=== PATIENT | male | born 1935 | race Caucasian/White ===

== ENCOUNTER → 2020-05-15 10:01 | Outpatient (BNVA) | payer OTHER, SELFPAY | PROVIDERS: Family Provider Family Medicine; PCP Family Medicine; Visit Provider Specialist | DX: I63.9 Cerebral infarction, unspecified (principal); G31.83 Neurocognitive disorder with Lewy bodies; F02.81 Dementia in other diseases classified elsewhere, unspecified severity, with behavioral disturbance | CPT/HCPCS: 99214 ==

== ENCOUNTER → 2020-11-05 09:42 | Outpatient (BNVA) | payer OTHER, SELFPAY | PROVIDERS: Family Provider Family Medicine; PCP Family Medicine; Visit Provider Specialist | DX: G31.83 Neurocognitive disorder with Lewy bodies (principal); F02.81 Dementia in other diseases classified elsewhere, unspecified severity, with behavioral disturbance | CPT/HCPCS: 99214 ==

== ENCOUNTER → 2021-03-26 10:01 | Outpatient (BNVA) | payer OTHER, SELFPAY | PROVIDERS: Family Provider Family Medicine; PCP Family Medicine; Visit Provider Specialist | DX: G31.83 Neurocognitive disorder with Lewy bodies (principal); F02.81 Dementia in other diseases classified elsewhere, unspecified severity, with behavioral disturbance | CPT/HCPCS: 99214 ==

== ENCOUNTER → 2021-10-06 10:31 | Outpatient (BNVA) | payer OTHER, SELFPAY | PROVIDERS: Family Provider Family Medicine; PCP Family Medicine; Visit Provider Specialist | DX: G31.83 Neurocognitive disorder with Lewy bodies (principal); F02.81 Dementia in other diseases classified elsewhere, unspecified severity, with behavioral disturbance | CPT/HCPCS: 99215 ==